=== PATIENT | female | born 1980 | race Caucasian/White ===

== ENCOUNTER 2022-06-24 14:22 | Emergency (ER) | payer SELFPAY ==
[2022-06-24] MEDS ORDERED: Lidocaine 1% (PF) 30 ML VIAL ONE (14:48)
[2022-06-24] MEDS ORDERED: Boostrix 0.5 ML (Tdap) VIAL (>/=7 yrs of age) ONE (16:18)
== END 2022-06-24 16:28 | disposition home or self-care (01) ==
LOC: CSHERS 14:22
DX: S61.412A Laceration without foreign body of left hand, initial encounter (principal); F17.210 Nicotine dependence, cigarettes, uncomplicated; W26.0XXA Contact with knife, initial encounter; Z23 Encounter for immunization
CPT/HCPCS: 12001; 90471; 90715; J2001